=== PATIENT | female | born 1995 | race African-American/Black ===

== ENCOUNTER 2017-03-02 10:26 | Inpatient (IN) ==
[2017-03-02] MEDS ORDERED: ONDANSETRON 4 MG/2 ML VIAL IV PRN (10:46)
[2017-03-02] MEDS ORDERED: fentaNYL 2 MCG/ROPIV 0.2% EPID 150 ML EPIDURAL SCH (11:00)
[2017-03-02] MEDS ORDERED: ePHEDrine 50 MG/ML AMP IV PRN (11:00)
[2017-03-02] MEDS ORDERED: hydrOXYzine HCL 25 MG/1 ML VIAL IM PRN (11:00)
[2017-03-02] MEDS ORDERED: LACTATED RINGERS 1,000 ML IV SCH (11:00)
[2017-03-02] MEDS ORDERED: CITRIC ACID/SODIUM CITRATE 30 ML UDCUP PO ONE (11:00)
[2017-03-02] MEDS ORDERED: diphenhydrAMINE 50 MG/1 ML VIAL IV PRN ×2 (11:00)
[2017-03-02] MEDS ORDERED: PROMETHAZINE 25 MG/1 ML VIAL IM ONE (11:00)
[2017-03-02] MEDS ORDERED: LACTATED RINGERS 1,000 ML IV ONE (11:00)
[2017-03-02] MEDS ORDERED: FAMOTIDINE 20 MG/2 ML VIAL IV ONE (11:00)
[2017-03-02] MEDS ORDERED: MEPERIDINE 50 MG/1 ML VIAL IV PRN (11:02)
[2017-03-02] MEDS: OXYTOCIN/LR 20 UNIT/1,000 ML BAG IV SCH ×2 (11:14→16:43)
[2017-03-02 11:21] LABS: Basophils % 0.2 % (0.0-0.8); Eosinophils % 0.4 % (0.00-10.9); Hematocrit 31.8 VOL% (35.7-47.0); Hemoglobin 9.8 GM/DL (12.0-16.0); Immature Granulocytes % 0.4 %; Immature Granulocytes Absolute 0.04 #; Lymphocytes # 1.7 10*3/uL (1.4-4.0); Lymphocytes % 16.1 % (21.3-54.2); Mean Corpuscular HGB Conc 30.8 GM/DL (32-36); Mean Corpuscular Hemoglobin 22 PG (27-34); Mean Corpuscular Volume 69.9 FL (87-102); Mean Platelet Volume 10.9 FL (9.6-12.0); Monocytes # 1.2 10*3/uL (0.11-0.8); Monocytes % 11.2 % (1.7-12.7); Neutrophils # 7.5 10*3/uL (1.4-7.4); Neutrophils % 71.7 % (38.7-73.9); Platelet Count 349 T/CUMM (130-400); Red Blood Count 4.55 MC/CUMM (3.8-5.5); Red Cell Distribution Width 17.2 % (9.3-17.3); White Blood Count 10.5 T/CUMM (4-12)
[2017-03-02 11:56] LABS: Alanine Aminotransferase 12 U/L (13-56); Albumin 2.7 G/DL (3.4-5.0); Alkaline Phosphatase 164 U/L (45-117); Aspartate Amino Transferase 14 U/L (0-37); Bilirubin,Total < 0.39 MG/DL (0.2-1.0); Blood Urea Nitrogen 6 MG/DL (7-18); Glucose 88 MG/DL (74-106); Potassium 3.8 MMOL/L (3.5-5.1); Sodium 136 MMOL/L (136-145); Total Protein 7.2 G/DL (6.4-8.3); Uric Acid 3.4 MG/DL (2.6-6.0)
[2017-03-02 13:35] LABS: Cord Venous Blood HCO3 20.7 MMOL/L; Cord Venous Blood PCO2 39.8 MMHG; Cord Venous Blood PO2 36.8
[2017-03-02] MEDS ORDERED: oxyCODONE/ACETAMINOPHEN 5-325 MG TABLET PO PRN (18:24)
[2017-03-02] MEDS: IBUPROFEN 800 MG TABLET PO PRN (18:33)
[2017-03-02] MEDS: oxyCODONE/ACETAMINOPHEN 5-325 MG TABLET PO PRN (18:34)
[2017-03-02] MEDS: DOCUSATE SODIUM 100 MG CAPSULE PO SCH (21:17)
[2017-03-03] MEDS: IBUPROFEN 800 MG TABLET PO PRN ×2 (05:57→17:13)
[2017-03-03 06:20] LABS: Basophils % 0.4 % (0.0-0.8); Eosinophils # 0.1 10*3/uL (0.0-0.87); Eosinophils % 0.9 % (0.00-10.9); Hematocrit 29.5 VOL% (35.7-47.0); Immature Granulocytes % 0.7 %; Immature Granulocytes Absolute 0.08 #; Lymphocytes % 17.3 % (21.3-54.2); Mean Corpuscular HGB Conc 30.5 GM/DL (32-36); Mean Corpuscular Hemoglobin 21 PG (27-34); Mean Corpuscular Volume 69.2 FL (87-102); Mean Platelet Volume 10.6 FL (9.6-12.0); Monocytes # 1.4 10*3/uL (0.11-0.8); Monocytes % 11.9 % (1.7-12.7); Neutrophils # 7.8 10*3/uL (1.4-7.4); Neutrophils % 68.8 % (38.7-73.9); Platelet Count 291 T/CUMM (130-400); Red Blood Count 4.26 MC/CUMM (3.8-5.5); Red Cell Distribution Width 17.4 % (9.3-17.3); White Blood Count 11.3 T/CUMM (4-12)
[2017-03-03] MEDS: FERROUS SULFATE 325 MG TABLET PO SCH ×2 (09:51→21:12)
[2017-03-03] MEDS: DOCUSATE SODIUM 100 MG CAPSULE PO SCH ×2 (09:51→21:12)
[2017-03-03] MEDS ORDERED: INFLUENZA VIRUS VACCINE 0.5 ML SYRINGE IM ONE (11:15)
[2017-03-03] MEDS ORDERED: RHO(D) IMMUNE GLOBULIN 300 MCG SYRINGE IM ONE (12:01)
[2017-03-03] MEDS: oxyCODONE/ACETAMINOPHEN 5-325 MG TABLET PO PRN (17:13)
[2017-03-04] MEDS: oxyCODONE/ACETAMINOPHEN 5-325 MG TABLET PO PRN ×2 (02:04→09:17)
[2017-03-04] MEDS: FERROUS SULFATE 325 MG TABLET PO SCH (09:15)
[2017-03-04] MEDS: DOCUSATE SODIUM 100 MG CAPSULE PO SCH (09:15)
[2017-03-04] MEDS: IBUPROFEN 800 MG TABLET PO PRN (09:15)
[2017-03-04] MEDS ORDERED: DIPH/TET/ACEL PERT BOOSTER VACCINE 0.5 ML VIAL IM ONE (13:08)
[2017-03-04 15:13] VITALS: BP 129/83
== END 2017-03-04 14:15 | disposition home or self-care (01) | DRG 541 ==
LOC: N.LDOUT 10:26 → N.LD 10:28 → N.OB 17:05
PROVIDERS: ADMIT Obstetrics & Gynecology; ATTEND Obstetrics & Gynecology

== ENCOUNTER 2022-03-07 05:20 | Inpatient (IN) ==
[2022-03-07] MEDS ORDERED: METHYLERGONOVINE 0.2 MG/1 ML AMP IM PRN (05:46)
[2022-03-07] MEDS ORDERED: miSOPROStoL 200 MCG TABLET RECTAL PRN (05:46)
[2022-03-07] MEDS ORDERED: TRANEXAMIC ACID 1,000 MG in SODIUM CHLORIDE 0.9% 100 ML IV PRN (05:46)
[2022-03-07] MEDS ORDERED: OXYTOCIN/LR 20 UNIT/1,000 ML BAG IV ONE ×2 (05:46→15:16)
[2022-03-07] MEDS ORDERED: LACTATED RINGERS 500 ML IV PRN (05:46)
[2022-03-07] MEDS ORDERED: ONDANSETRON 4 MG/2 ML VIAL IV PRN ×2 (05:46→15:16)
[2022-03-07] MEDS ORDERED: CARBOPROST TROMETHAMINE 250 MCG/ML AMP IM PRN (05:46)
[2022-03-07] MEDS ORDERED: BUTORPHANOL 2 MG/ML VIAL IV PRN (05:46)
[2022-03-07] MEDS ORDERED: OXYTOCIN/LR 20 UNIT/1,000 ML BAG IV SCH (06:00)
[2022-03-07] MEDS: LACTATED RINGERS 1,000 ML IV SCH ×2 (06:02→08:38)
[2022-03-07 06:36] LABS: Basophils % 0.4 % (0.0-0.8); Eosinophils % 0.4 % (0.00-10.9); Hematocrit 31.7 VOL% (35.7-47.0); Immature Granulocytes % 0.4 %; Immature Granulocytes Absolute 0.03 #; Lymphocytes % 12.5 % (21.3-54.2); Mean Corpuscular HGB Conc 31.5 GM/DL (32-36); Mean Corpuscular Volume 71.6 FL (87-102); Mean Platelet Volume 10.7 FL (9.6-12.0); Monocytes # 0.8 10*3/uL (0.11-0.8); Monocytes % 9.8 % (1.7-12.7); Neutrophils % 76.5 % (38.7-73.9); Platelet Count 259 T/CUMM (130-400); Red Blood Count 4.43 MC/CUMM (3.8-5.5); White Blood Count 8.3 T/CUMM (4-12)
[2022-03-07 07:07] LABS: Alanine Aminotransferase 9 U/L (13-56); Albumin 2.7 G/DL (3.4-5.0); Alkaline Phosphatase 117 U/L (45-117); Aspartate Amino Transferase 12 U/L (0-37); Bilirubin,Total < 0.39 MG/DL (0.20-1.00); Blood Urea Nitrogen 7 MG/DL (7-18); Calcium 8.6 MG/DL (8.5-10.1); Carbon Dioxide 21 MMOL/L (21-32); Chloride 110 MMOL/L (98-107); Glucose 86 MG/DL (74-106); Osmolality,Calculated 275.4 MOS/KG (273-304); Potassium 3.3 MMOL/L (3.5-5.1); Sodium 140 MMOL/L (136-145); Total Protein 6.6 G/DL (6.4-8.2)
[2022-03-07] MEDS ORDERED: PROMETHAZINE 25 MG/1 ML VIAL IM ONE (07:30)
[2022-03-07] MEDS ORDERED: FAMOTIDINE 20 MG/2 ML VIAL IV ONE (07:30)
[2022-03-07] MEDS ORDERED: hydrOXYzine HCL 25 MG/1 ML VIAL IM PRN (07:30)
[2022-03-07] MEDS ORDERED: LACTATED RINGERS 1,000 ML IV ONE (07:30)
[2022-03-07] MEDS ORDERED: diphenhydrAMINE 50 MG/1 ML VIAL IV PRN ×2 (07:30)
[2022-03-07] MEDS ORDERED: ePHEDrine 50 MG/ML VIAL IV PRN (07:30)
[2022-03-07] MEDS ORDERED: fentaNYL 2 MCG/ROPIV 0.2% EPID 100 ML EPIDURAL SCH (07:30)
[2022-03-07] MEDS ORDERED: NALOXONE 0.4 MG/ML VIAL IV PRN (07:30)
[2022-03-07] MEDS ORDERED: CITRIC ACID/SODIUM CITRATE 30 ML UDCUP PO ONE (07:30)
[2022-03-07 11:28] LABS: Bilirubin,Urine Negative (Negative); Blood, Urine Negative (Negative); Glucose,Urine (UA) Negative (Negative); Ketones,Urine 20 mg/dL (Negative); Mucus,Urine Occasional /LPF (Occasional); Nitrite,Urine Negative (Negative); Protein,Urine Negative (Negative); RBC,Urine <1 /HPF (0-4); Squamous Epithelial Cell,Urine Occasional /HPF (0-10); Urine Appearance Slightly Hazy (Clear); Urine Color Yellow (Yellow); Urine Specific Gravity 1.013 (1.001-1.035); Urine Urobilinogen < 2.0 eU/dL (<2.0)
[2022-03-07 12:03] LABS: Cord Arterial Blood HCO3 22.6 MMOL/L
[2022-03-07 12:07] LABS: Cord Venous Blood HCO3 22.5 MMOL/L; Cord Venous Blood PCO2 37.8 MMHG; Cord Venous Blood PO2 32.7
[2022-03-07] MEDS ORDERED: MEASLES/MUMPS/RUBELLA VACCINE 0.5 ML VIAL SUBCUT ONE (15:16)
[2022-03-07] MEDS ORDERED: ACETAMINOPHEN 325 MG TABLET PO PRN (15:16)
[2022-03-07] MEDS ORDERED: HYDROCORTISONE 2.5% RECTAL CREAM 30 GM TUBE TOP PRN (15:16)
[2022-03-07] MEDS ORDERED: BENZOCAINE 20%/MENTHOL 0.5% SPRAY 56 GM CAN TOP PRN (15:16)
[2022-03-07] MEDS ORDERED: LANOLIN 50% CREAM 0.3 OZ TUBE TOP PRN (15:16)
[2022-03-07] MEDS ORDERED: WITCH HAZEL PADS 100/JAR TOP PRN (15:16)
[2022-03-07] MEDS ORDERED: oxyCODONE/ACETAMINOPHEN 5-325 MG TABLET PO PRN (15:16)
[2022-03-07] MEDS ORDERED: DIPH/TET/ACEL PERT BOOSTER VACCINE 0.5 ML VIAL IM ONE (15:16)
[2022-03-07] MEDS ORDERED: BISACODYL 10 MG SUPP RECTAL PRN (15:16)
[2022-03-07] MEDS ORDERED: RHO(D) IMMUNE GLOBULIN 300 MCG SYRINGE IM ONE (15:16)
[2022-03-07] MEDS: DOCUSATE SODIUM 100 MG CAPSULE PO SCH (21:43)
[2022-03-07] MEDS: IBUPROFEN 800 MG TABLET PO PRN (21:45)
[2022-03-07] MEDS: OSELTAMIVIR 75 MG CAPSULE PO SCH (21:52)
[2022-03-08] MEDS: POTASSIUM CHLORIDE 20 MEQ TABLET PO PRN ×3 (01:34→05:41)
[2022-03-08 05:51] LABS: Basophils % 0.3 % (0.0-0.8); Eosinophils % 0.1 % (0.00-10.9); Hematocrit 28.3 VOL% (35.7-47.0); Hemoglobin 8.9 GM/DL (12.0-16.0); Immature Granulocytes % 0.3 %; Immature Granulocytes Absolute 0.02 #; Lymphocytes # 1.3 10*3/uL (1.4-4.0); Lymphocytes % 18.1 % (21.3-54.2); Mean Corpuscular HGB Conc 31.4 GM/DL (32-36); Mean Corpuscular Volume 72.8 FL (87-102); Mean Platelet Volume 11.2 FL (9.6-12.0); Monocytes # 1.1 10*3/uL (0.11-0.8); Monocytes % 15.4 % (1.7-12.7); Neutrophils % 65.8 % (38.7-73.9); Platelet Count 228 T/CUMM (130-400); Red Blood Count 3.89 MC/CUMM (3.8-5.5); Red Cell Distribution Width 14.8 % (9.3-17.3)
[2022-03-08] MEDS: OSELTAMIVIR 75 MG CAPSULE PO SCH ×2 (09:36→21:31)
[2022-03-08] MEDS: DOCUSATE SODIUM 100 MG CAPSULE PO SCH ×2 (09:36→21:23)
[2022-03-08] MEDS: oxyCODONE/ACETAMINOPHEN 5-325 MG TABLET PO PRN (18:14)
[2022-03-09] MEDS: IBUPROFEN 800 MG TABLET PO PRN (03:13)
[2022-03-09] MEDS ORDERED: RHO(D) IMMUNE GLOBULIN 300 MCG SYRINGE IM ONE (05:00)
[2022-03-09] MEDS ORDERED: MULTIVITAMIN (PRENATAL) TABLET PO SCH (09:00)
[2022-03-09] MEDS ORDERED: INFLUENZA VIRUS VACCINE 0.5 ML SYRINGE IM ONE (09:00)
[2022-03-09 09:04] VITALS: BP 131/78
[2022-03-09] MEDS: OSELTAMIVIR 75 MG CAPSULE PO SCH (09:37)
[2022-03-09] MEDS: DOCUSATE SODIUM 100 MG CAPSULE PO SCH (09:37)
[2022-03-09] MEDS: oxyCODONE/ACETAMINOPHEN 5-325 MG TABLET PO PRN (09:47)
== END 2022-03-09 13:35 | disposition home or self-care (01) | DRG 560 ==
LOC: N.LD 05:20 → N.OB 14:51
PROVIDERS: ADMIT Specialist; ATTEND Specialist